=== PATIENT | female | born 1975 | race Caucasian/White ===

== ENCOUNTER 2016-11-02 13:49 | Emergency (ER) | payer OTHER ==
[~2016-11-02] VITALS: Ht 157.5 cm; Wt 108.6 kg
[2016-11-02 14:04] VITALS: BP 151/113; PULSE 107; RESP 16; TEMP 98.8; O2SAT 96
[2016-11-02 14:29] VITALS: BP 164/102; PULSE 98; RESP 18; O2SAT 97
[2016-11-02] MEDS ORDERED: BUPR150XL PO (14:29)
[2016-11-02] MEDS ORDERED: GARC500T PO (14:29)
[2016-11-02] MEDS ORDERED: PAXI20TA PO (14:29)
[2016-11-02] MEDS ORDERED: OMEP40CA2 PO (14:29)
--- NOTE | 2016-11-02 14:44 | PD ---
HPI Chief Complaint: Dizziness Time Seen by Provider: 14:31 Travel History International Travel<30 days: No Contact w/Intl Traveler<30days: No Traveled to known affect area: No History of Present Illness HPI 41yo F with PMH of HTN but off medication presents to the ED with c/o room spinning for the last 4-5 days. States it usually happens when she turns her head but improved on its own. However, today it did not improve so she came here. +Nausea. Denies any fever, headache, visual changes, tinnitus, vomiting , chest pain, sob, abdominal pain, focal weakness or numbness. PFSH Past Medical History Anxiety: Yes GERD: Yes Influenza Vaccination: No ?: Not LMP: 3 weeks ago Past Surgical History Surgical History: No Previous Surgery Social History Alcohol Use: No Tobacco Use: Yes Substance Use: No Allergies-Medications (Allergen,Severity, Reaction): Coded Allergies: No Known Allergies (Unverified , 11/02/16) Reported Meds & Prescriptions Reported Meds & Active Scripts Active Meclizine (Meclizine HCl) 25 Mg Tab 25 Mg PO DIRECTED PRN Reported Garcinia Cambogia 500-200 mg-Mcg (Garcinia Cambogia-Chromium) 1 Tab Tab 1 Tab PO DAILY Omeprazole 40 Mg Cap 40 Mg PO DAILY Wellbutrin Xl 24 HR (Bupropion HCl) 150 Mg Tab 150 Mg PO DAILY Paxil (Paroxetine HCl) 20 Mg Tab 20 Mg PO DAILY Review of Systems Except as stated in HPI: all other systems reviewed are Neg Physical Exam Narrative GENERAL: 41yo F not in distress. SKIN: Warm and dry. HEAD: Atraumatic. Normocephalic. EYES: Pupils equal and round. EOMI. +Right horizontal nystagmus. No scleral icterus. No injection or drainage. ENT: No nasal bleeding or discharge. Mucous membranes pink and moist. NECK: Trachea midline. No JVD. CARDIOVASCULAR: Regular rate and rhythm. No murmur appreciated. RESPIRATORY: No accessory muscle use. Clear to auscultation. Breath sounds equal bilaterally. GASTROINTESTINAL: Abdomen soft, non-tender, nondistended. No rebound tenderness or guarding. MUSCULOSKELETAL: No obvious deformities. No clubbing. No cyanosis. No edema. NEUROLOGICAL: Awake and alert. No obvious cranial nerve deficits. Motor grossly within normal limits. Normal speech. PSYCHIATRIC: Appropriate mood and affect; insight and judgment normal. Data Data Last Documented VS Vital Signs Date Time Temp Pulse Resp B/P Pulse Ox O2 Delivery O2 Flow Rate FiO2 11/02/16 15:57 78 18 156/81 100 Room Air 11/02/16 14:04 98.8 Orders Meclizine (Antivert) (11/02/16 14:45) Ondansetron Inj (Zofran Inj) (11/02/16 14:45) Complete Blood Count With Diff (11/02/16 14:40) Basic Metabolic Panel (Bmp) (11/02/16 14:40) Electrocardiogram (11/02/16 ) Labs Laboratory Tests Test 11/02/16 14:50 White Blood Count 7.4 TH/MM3 Red Blood Count 4.78 MIL/MM3 Hemoglobin 14.7 GM/DL Hematocrit 43.6 % Mean Corpuscular Volume 91.3 FL Mean Corpuscular Hemoglobin 30.7 PG Mean Corpuscular Hemoglobin 33.6 % Concent Red Cell Distribution Width 12.6 % Platelet Count 292 TH/MM3 Mean Platelet Volume 8.0 FL Neutrophils (%) (Auto) 62.6 % Lymphocytes (%) (Auto) 25.7 % Monocytes (%) (Auto) 7.1 % Eosinophils (%) (Auto) 4.0 % Basophils (%) (Auto) 0.6 % Neutrophils # (Auto) 4.7 TH/MM3 Lymphocytes # (Auto) 1.9 TH/MM3 Monocytes # (Auto) 0.5 TH/MM3 Eosinophils # (Auto) 0.3 TH/MM3 Basophils # (Auto) 0.0 TH/MM3 CBC Comment DIFF FINAL Differential Comment Sodium Level 139 MEQ/L Potassium Level 4.1 MEQ/L Chloride Level 105 MEQ/L Carbon Dioxide Level 25.9 MEQ/L Anion Gap 8 MEQ/L Blood Urea Nitrogen 10 MG/DL Creatinine 0.74 MG/DL Estimat Glomerular Filtration 87 ML/MIN Rate Random Glucose 89 MG/DL Calcium Level 8.4 MG/DL [facility] Medical Decision Making Medical Screen Exam Complete: Yes Emergency Medical Condition: Yes Interpretation(s) EKG: NSR 99bpm. LAD. Q wave V1, V2, V3, III. Differential Diagnosis Vertigo vs. arrhythmia vs. dehydration vs. electrolyte abnormality Narrative Course 41yo F with PMH of HTN off med here with symptoms consistent with peripheral vertigo. Pt feels spinning and triggered by head movement. +Right horizontal nystagmus. Will give meclizine and reevaluate. Labs reviewed, no leukocytosis. BMP unremarkable. Repeat VS wnl. Pt given zofran and meclizine and dizziness and nausea has resolved. Strict return precautions given. Diagnosis Primary Impression: Vertigo Patient Instructions: General Instructions Departure Forms: Tests/Procedures Additional Instructions: Please follow up with your PMD in 3-7 days. Please return to the ED if your symptoms worsen. Med/Other Pt SpecificInfo: Prescription(s) given Scripts Meclizine 25 Mg Tab25 Mg PO DIRECTED PRN (VERTIGO) #10 TAB Ref 0 Prov:Teresita Ware DO 11/02/16 Disposition: 01 DISCHARGE HOME Condition: Stable Teresita Ware DO Nov 02, 2016 14:44
[2016-11-02] MEDS ORDERED: MECLIZINE HCL 25 MG TAB PO ONE (14:45)
[2016-11-02] MEDS ORDERED: ONDANSETRON HCL 4 MG/2 ML VIAL IV PUSH ONE (14:45)
[2016-11-02 15:02] LABS: AUTOMATED NEUTROPHIL # 4.7 TH/MM3 (1.8-7.7); BASOPHIL % 0.6 % (0.0-2.0); EOSINOPHIL # 0.3 TH/MM3 (0-0.4); HEMATOCRIT 43.6 % (35.0-46.0); HEMO FLAGS DIFF FINAL; LYMPH % 25.7 % (9.0-44.0); LYMPHOCYTE # 1.9 TH/MM3 (1.0-4.8); MEAN CELL VOLUME 91.3 FL (80.0-100.0); MEAN CORPUSCULAR HEMOGLOBIN 30.7 PG (27.0-34.0); MEAN CORPUSCULAR HGB CONC 33.6 % (32.0-36.0); MONO % 7.1 % (0.0-8.0); NEUT % 62.6 % (16.0-70.0); PLATELET COUNT 292 TH/MM3 (150-450); RED BLOOD COUNT 4.78 MIL/MM3 (4.00-5.30); RED CELL DISTRIBUTION WIDTH 12.6 % (11.6-17.2); WHITE BLOOD COUNT 7.4 TH/MM3 (4.0-11.0)
[2016-11-02 15:11] LABS: POTASSIUM 4.1 MEQ/L (3.5-5.1)
[2016-11-02 15:14] LABS: BICARBONATE 25.9 MEQ/L (21.0-32.0)
[2016-11-02 15:57] VITALS: BP 156/81; PULSE 78; RESP 18; O2SAT 100
[2016-11-02] MEDS ORDERED: MECL-62 PO (16:07)
--- NOTE | 2016-11-03 23:59 | EKG ---
Date Performed: 11/02/2016 Time Performed: 14:53:22 PTAGE: 41 years EKG: Sinus rhythm QRS changes in V2 may be due to LVH but cannot rule out septal infarct Low QRS voltages in precordia l leads Abnormal ECG NO PREVIOUS TRACING DOCTOR: Srinivasa Lawler Interpretating Date/Time 11/03/2016 23:59:00
== END 2016-11-02 16:57 | disposition home or self-care (01) ==
LOC: PHED 13:49
DX: R42 Dizziness and giddiness (principal); R11.0 Nausea; H55.09 Other forms of nystagmus; R94.31 Abnormal electrocardiogram [ECG] [EKG]; I10 Essential (primary) hypertension; Z72.0 Tobacco use; Z87.19 Personal history of other diseases of the digestive system; Z86.59 Personal history of other mental and behavioral disorders
CPT/HCPCS: 80048; 85025; 93005; 96374; 99284; J2405

== ENCOUNTER 2017-04-28 18:39 | Emergency (ER) | payer OTHER ==
[~2017-04-28] VITALS: Ht 157.5 cm; Wt 109.6 kg
[~2017-04-28 18:39] MED LIST: BUPR150XL PO; NICO2GUM35 CHEW; OMEP40CA2 PO; PAXI20TA PO
[2017-04-28 18:47] VITALS: BP 158/92; PULSE 105; RESP 16; TEMP 98.6; O2SAT 96
[2017-04-28 19:10] VITALS: BP_SYST 158; BP_SYST 201; BP_DIAS 92; BP_DIAS 93; PULSE 103; PULSE 90; RESP 20; TEMP 97.3; TEMP 98.6; O2SAT 98
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
== END 2017-04-28 20:58 | disposition home or self-care (01) ==
LOC: PHEFT 18:39
DX: S60.221A Contusion of right hand, initial encounter (principal); W20.8XXA Other cause of strike by thrown, projected or falling object, initial encounter; K21.9 Gastro-esophageal reflux disease without esophagitis; I10 Essential (primary) hypertension; F17.210 Nicotine dependence, cigarettes, uncomplicated
CPT/HCPCS: 73130; 99283

== ENCOUNTER 2018-07-28 04:13 | Observation (INO) ==
[2018-07-28] MEDS ORDERED: Aspirin 325 MG Tablet PO ONE (04:33)
--- NOTE | 2018-07-28 04:33 | ED ---
HPI General Chief complaint: Chest Pain Stated complaint: Chest pain Time Seen by Provider: 07/28/18 04:19 Source: patient Mode of arrival: ambulatory Limitations: no limitations History of Present Illness HPI narrative: 42yo F who denies any PMH here with c/o chest pain that started 20 minutes ago. Said it feels like someone is pressing on her chest. Pain is midsternal. +Diaphoresis. any fever, sob, n/v, abdominal pain, history of PE , DVT, focal weakness or numbness. Related Data Home Medications Medication Instructions Recorded Confirmed bupropion HCl [Wellbutrin XL] 150 mg PO QAM 07/28/18 07/28/18 paroxetine HCl [Paxil] 10 mg PO DAILY 07/28/18 07/28/18 Allergies Allergy/AdvReac Type Severity Reaction Status Date / Time No Known Allergies Allergy Verified 07/28/18 04:26 Review of Systems ROS: all other systems reviewed are negative [facility] Medical History Medical History Depression (Acute) Surgical History Surgical History H/O removal of cyst (Acute) H/O tubal ligation (Acute) Previous section (Acute) Social History Social History Substance History: No History of Abuse Smoking Status: Former smoker How Often Do You Have a Drink Containing Alcohol: Never Exam Narrative Exam Narrative: GENERAL: 42yo F in mild distress. SKIN: Focused skin assessment warm/dry. HEAD: Atraumatic. Normocephalic. EYES: Pupils equal and round. No scleral icterus. No injection or drainage. ENT: No nasal bleeding or discharge. Mucous membranes pink and moist. NECK: Trachea midline. No JVD. CARDIOVASCULAR: Regular rate and rhythm. No murmur appreciated. RESPIRATORY: No accessory muscle use. Clear to auscultation. Breath sounds equal bilaterally. GASTROINTESTINAL: Abdomen soft, non-tender, nondistended. MUSCULOSKELETAL: No obvious deformities. No clubbing. No cyanosis. No edema. NEUROLOGICAL: Awake and alert. No obvious cranial nerve deficits. Motor grossly within normal limits. Normal speech. PSYCHIATRIC: Appropriate mood and affect; insight and judgment normal. Course Initial Documented Vital Signs Temperature 97.7 F 07/28/18 04:27 Pulse Rate 115 H 07/28/18 04:27 Respiratory Rate 20 07/28/18 04:27 Blood Pressure 121/74 07/28/18 04:27 Pulse Oximetry 98 07/28/18 04:27 Last Documented Vital Signs Temperature 97.2 F L 07/28/18 06:15 Pulse Rate 98 H 07/28/18 06:15 Respiratory Rate 18 07/28/18 06:15 Blood Pressure 132/85 07/28/18 06:15 Pulse Oximetry 95 07/28/18 06:15 Medical Decision Making MDM Narrative Medical decision making narrative: 42yo F here with c/o midsternal chest pain that started 20 minutes prior to arrival. Said she has never had this chest pain before and never had a stress test. Pt does appear anxious so given 1mg of ativan. Also given aspirin and sublingual nitro. Chest pain has improved. Labs reviewed, no leukocytosis. H/H normal. Troponin negative. Pt was tachycardic so I did obtain D-dimer which was negative. CXR negative. Discussed with Dr. Ospina and accepted to her service for chest pain center. Medical Screen Exam Complete: Yes Emergency Medical Condition: Yes Differential Diagnosis Differential Diagnosis: ACS vs. anxiety vs. musculoskeletal pain vs. GERD Lab Data Result diagrams: 07/28/18 04:25 07/28/18 04:25 Lab Results 07/28/18 07/28/18 07/28/18 Range/Units 04:25 04:25 04:35 CBC w Diff Auto diff final WBC 10.0 (4.0-11.0) th/mm3 RBC 4.74 (4.00-5.30) mil/mm3 Hgb 14.6 (11.6-15.3) gm/dL Hct 42.8 (35.0-46.0) % MCV 90.3 (80.0-100.0) fL MCH 30.8 (27.0-34.0) pg MCHC 34.1 (32.0-36.0) % RDW 12.4 (11.6-17.2) % Plt Count 286 (150-450) th/mm3 MPV 8.0 (7.0-11.0) fL Neut % (Auto) 56.0 (16.0-70.0) % Lymph % (Auto) 32.4 (9.0-44.0) % [place] % (Auto) 7.7 (0.0-8.0) % Eos % (Auto) 3.5 (0.0-4.0) % Baso % (Auto) 0.4 (0.0-2.0) % Neut # (Auto) 5.5 (1.8-7.7) th/mm3 Lymph # (Auto) 3.3 (1.0-4.8) th/mm3 [place] # (Auto) 0.8 (0.0-0.9) th/mm3 Eos # (Auto) 0.4 (0.0-0.4) th/mm3 Baso # (Auto) 0.0 (0.0-0.2) th/mm3 WBC Differential . Differential Comment . D-Dimer Quant (PE/DVT) 0.19 (0.00-0.50) mg/L FEU Sodium 140 (136-145) meq/L Potassium 3.4 L (3.5-5.1) meq/L Chloride 109 H (98-107) meq/L Carbon Dioxide 22.0 (21.0-32.0) meq/L Anion Gap 9 (5-15) meq/L BUN 11 (7-18) mg/dL Creatinine 0.78 (0.50-1.00) mg/dL Estimated GFR 82 L (>89) mL/min Random Glucose 113 H (74-106) mg/dL Calcium 8.4 L (8.5-10.1) mg/dL Total Bilirubin 0.3 (0.2-1.0) mg/dL AST 15 (15-37) U/L ALT 35 (10-53) U/L Alkaline Phosphatase 105 (45-117) U/L Troponin I Less than 0.02 L (0.02-0.05) ng/mL Total Protein 7.3 (6.4-8.2) g/dL Albumin 3.6 (3.4-5.0) g/dL Imaging Data Radiologist's impression: Chest X-Ray 07/28/18 04:15 CONCLUSION: No active disease. ECG Data EKG Prior to Arrival: No Attestation: I personally reviewed and interpreted this ECG as follows: Interpretation: Sinus tachycardia at 100bpm. LAD. GA interval 169ms. No significant ST elevation or depression. Q wave V2. Discharge Plan Discharge Disposition Patient Disposition: 30 Still Patient Discharge Details Diagnosis: Chest pain Physicians Team ED Provider: Teresita Ware Primary Care Provider: [facility],Physician Family Attending Provider: Von Virk Status ED Status: Left Department Discharge Information Discharge Date/Time: 07/28/18 06:24
[2018-07-28 04:42] LABS: Baso % (Auto) 0.4 % (0.0-2.0); Eos # (Auto) 0.4 th/mm3 (0.0-0.4); Eos % (Auto) 3.5 % (0.0-4.0); Hematocrit 42.8 % (35.0-46.0); Hemoglobin 14.6 gm/dL (11.6-15.3); Lymph # (Auto) 3.3 th/mm3 (1.0-4.8); Lymph % (Auto) 32.4 % (9.0-44.0); Mean Corpuscular HGB Conc 34.1 % (32.0-36.0); Mean Corpuscular Hemoglobin 30.8 pg (27.0-34.0); Mean Corpuscular Volume 90.3 fL (80.0-100.0); Mono # (Auto) 0.8 th/mm3 (0.0-0.9); Mono % (Auto) 7.7 % (0.0-8.0); Neut # (Auto) 5.5 th/mm3 (1.8-7.7); Platelet Count 286 th/mm3 (150-450); Red Blood Count 4.74 mil/mm3 (4.00-5.30); Red Cell Distribution Width 12.4 % (11.6-17.2)
[2018-07-28] MEDS ORDERED: Sod Chloride 0.9% Inj 1,000 ML IV.SIG SCH (04:45)
[2018-07-28 04:49] LABS: Chloride 109 meq/L (98-107); Potassium 3.4 meq/L (3.5-5.1); Sodium 140 meq/L (136-145)
[2018-07-28 04:52] LABS: Calcium 8.4 mg/dL (8.5-10.1)
[2018-07-28 04:53] LABS: Albumin 3.6 g/dL (3.4-5.0); Anion Gap 9 meq/L (5-15); Blood Urea Nitrogen 11 mg/dL (7-18); Glucose,Random 113 mg/dL (74-106)
[2018-07-28 04:56] LABS: Alanine Aminotransferase 35 U/L (10-53); Aspartate Aminotransferase 15 U/L (15-37); Glomerular Filtration Rate 82 mL/min (>89)
[2018-07-28 04:58] LABS: Total Protein 7.3 g/dL (6.4-8.2)
[2018-07-28 04:59] LABS: Alkaline Phosphatase 105 U/L (45-117)
--- NOTE | 2018-07-28 05:01 | XR ---
EXAM DATE: 07/28/2018 4:41 AM EST AGE/SEX: 42 years / Female INDICATIONS: Anterior chest wall pain. CLINICAL DATA: This is the patient's initial encounter. Patient reports that signs and symptoms have been present for 1 day and indicates a pain score of 10/10. MEDICAL/SURGICAL HISTORY: Non-responsive. Non-responsive. COMPARISON: No prior exams available for comparison. FINDINGS: A single AP view of the chest demonstrates the lungs to be symmetrically aerated without evidence of mass, infiltrate or effusion. The cardiomediastinal contours are unremarkable. Osseous structures a re intact. CONCLUSION: No active disease. Electronically signed by: Dread Childers MD 07/28/2018 4:59 AM EST
[2018-07-28] MEDS ORDERED: Acetaminophen 500 MG Tablet PO PRN (05:35)
[2018-07-28] MEDS ORDERED: Morphine Inj 4 MG/ML Vial IV.PUSH PRN (05:35)
[2018-07-28] MEDS ORDERED: Sod Chloride 0.9% Inj 1,000 ML IV.CONT SCH (05:45)
[2018-07-28] MEDS ORDERED: Heparin - SQ 10,000 UNITS/ML Vial SQ SCH (06:00)
--- NOTE | 2018-07-28 08:01 | P.HP ---
History of Present Illness Primary Care Physician: Physician [facility] Chief Complaint: Chest pain History of Present Illness: 42-year-old female with known history of depression who presented to the hospital because acute onset of chest pain. Patient states that she was in normal state of health and went to bed last night at approximately 3:50 AM this morning she woke up suddenly with a sharp pain in her back radiating down to her chest with associated jaw pain, nausea, shortness of breath, diaphoresis. She states that it was 8/10 on a pain scale. She described it as like a knife stabbing from her back into her chest and remained persistent with a change of pain which she described as it felt as if someone was reaching in her chest grabbing her spine. Patient got out of bed and tried stretching and lying on the floor but it did not help so she came to emergency department for evaluation. Patient was given aspirin, nitroglycerin in the emergency department. Patient states that after the second nitroglycerin the pain resolved. Currently the patient is asymptomatic. Patient had workup done and was unremarkable for any acute event. It is recommend that the patient be observed in the chest pain center for further evaluation and management. Patient denies any previous cardiac issues, cardiac workup. Patient denies any lightheadedness, dizziness, abdominal pain, diarrhea, constipation, melena, hematochezia, heartburn, gastroesophageal reflux. - Diagnosis (1) Chest pain Review of Systems All other systems reviewed negative except as stated in HPI Cardiovascular: Reports chest pain, Reports radiating jaw, neck or arm pain, Reports shortness of breath Gastrointestinal: Reports nausea PMFSH - History History Provided By: Patient - Medical History Medical History: Medical History (Last Reviewed 07/28/18 @ 08:00 by FELICE Huynh) Depression - Surgical History Surgical History: Surgical History (Last Reviewed 07/28/18 @ 08:00 by FELICE Huynh) History of cholecystectomy H/O removal of cyst H/O tubal ligation Previous section - Family History Family History: Family History (Last Reviewed 07/28/18 @ 08:00 by FELICE Huynh) Father Family history of hypertension Other Family history of breast cancer Family history of diabetes mellitus Family history of lung cancer - Tobacco History Second Hand Smoke Exposure: No Tobacco Use In Past 30 Days: No Smoking Status: Former smoker Tobacco Type: Cigarettes Number of Pack Years (if former smoker): 10 (Quit smoking 6 months ago) - Alcohol History How Often Do You Have a Drink Containing Alcohol: Never - Substance Use History Substance History: No History of Abuse - Travel History Recent Travel in the [place] Within the Last 8 Weeks: No Recent Travel Out of the Country Within the Last 8 Weeks: No - Immunization History Tetanus Immunization: <5 Years Medications and Allergies Active Medications: Active Medications Acetaminophen (Tylenol) 500 mg PO Q4H PRN PRN Reason: HEADACHE Heparin Sodium (Porcine) (Heparin Inj) 5,000 units SQ Q12H [facility] Last Admin: 07/28/18 06:37 Dose: 5,000 units Sodium Chloride (Ns Inj) 1,000 mls @ 100 mls/hr IV.CONT .Q10H [facility] Last Admin: 07/28/18 05:47 Dose: 100 mls/hr Morphine Sulfate (Morphine Inj) 2 mg IV.PUSH Q4H PRN PRN Reason: PAIN SCALE 8 TO 10 Last Admin: 07/28/18 05:56 Dose: 2 mg Sodium Chloride (Ns Flush) 2 ml IV.FLUSH BID BENJA Sodium Chloride (Ns Flush) 2 ml IV.FLUSH PRN PRN PRN Reason: FLUSH AFTER USING IV ACCESS Allergies Allergy/AdvReac Type Severity Reaction Status Date / Time No Known Allergies Allergy Verified 07/28/18 04:26 Home Medications Medication Instructions Recorded Confirmed Type bupropion HCl [Wellbutrin XL] 150 mg PO QAM 07/28/18 07/28/18 History paroxetine HCl [Paxil] 10 mg PO DAILY 07/28/18 07/28/18 History Exam Vital signs: Vital Signs 07/28/18 04:27 07/28/18 04:33 07/28/18 04:34 Temperature 97.7 F Pulse Rate 115 H 115 H Respiratory Rate 20 Blood Pressure 121/74 Pulse Oximetry 98 98 98 07/28/18 04:44 07/28/18 04:49 07/28/18 04:56 Temperature Pulse Rate 118 H 117 H 108 H Respiratory Rate Blood Pressure 138/87 113/82 140/83 Pulse Oximetry 07/28/18 05:59 07/28/18 06:15 07/28/18 06:37 Temperature 97.2 F L Pulse Rate 96 H 98 H Respiratory Rate 18 Blood Pressure 111/75 132/85 Pulse Oximetry 95 95 Intake & Output 11/23/18 11/24/18 11/24/18 18:59 06:59 18:59 Intake Total 1000 / 1000 Balance 1000 / 1000 Weight 110.5 kg Intake: IV 1000 / 1000 NS Inj 1,000 ML @ 1000 mls/hr 1000 / 1000 IV.SIG BOLUS BENJA Rx#:[id number] Other: Weight On Admission 109.005 kg Narrative: GENERAL: Well-developed, mildly obese with BMI 43.8, in no acute distress. alert and orientated HEENT: Head is normocephalic without any lesions or masses noted. Facial features are symmetric. Eyes: Pupils equal round reactive to light. Extraocular muscles are intact. Conjunctivae were clear. Oropharyngeal: Pharynx without any erythema edema. Tongue is midline without deviation. Buccal mucosa is moist without any masses or lesions NECK: Supple without any masses. Trachea midline no deviation. No JVD, no bruits are appreciated CARDIAC: Regular rhythm, regular rate. S1/S2 are heard. No murmurs gallops or rubs. LUNGS: Clear to auscultation bilaterally. No wheeze, rhonchi or rales. No use of accessory muscles on inspiration or expiration. ABDOMEN: Soft, nontender. Nondistended. Bowel sounds heard in all 4 quadrants. No organomegaly or masses. Negative rebound, negative guarding EXTREMITIES: No edema, pulses are equal bilaterally. No cyanosis or clubbing NEUROLOGY: Mood and affect appear appropriate. Cranial nerves II through XII grossly intact. Muscle strength 5/5 in upper and lower extremities bilaterally. Deep tendon reflexes are 2+ in upper and lower extremities bilaterally. Results - Labs CBC & Chem 7: 07/28/18 04:25 07/28/18 04:25 Labs: Laboratory Results - last 24 hr 07/28/18 07/28/18 07/28/18 04:25 04:25 04:35 CBC w Diff Auto diff final WBC 10.0 RBC 4.74 Hgb 14.6 Hct 42.8 MCV 90.3 MCH 30.8 MCHC 34.1 RDW 12.4 Plt Count 286 MPV 8.0 Neut % (Auto) 56.0 Lymph % (Auto) 32.4 [place] % (Auto) 7.7 Eos % (Auto) 3.5 Baso % (Auto) 0.4 Neut # (Auto) 5.5 Lymph # (Auto) 3.3 [place] # (Auto) 0.8 Eos # (Auto) 0.4 Baso # (Auto) 0.0 WBC Differential . Differential Comment . D-Dimer Quant (PE/DVT) 0.19 Sodium 140 Potassium 3.4 L Chloride 109 H Carbon Dioxide 22.0 Anion Gap 9 BUN 11 Creatinine 0.78 Estimated GFR 82 L Random Glucose 113 H Calcium 8.4 L Total Bilirubin 0.3 AST 15 ALT 35 Alkaline Phosphatase 105 Troponin I Less than 0.02 L Total Protein 7.3 Albumin 3.6 - Imaging Impressions Chest X-Ray 07/28/18 04:15 CONCLUSION: No active disease. Caprini VTE Risk Assessment Caprini VTE Risk Assessment: No/Low Risk (score <= 1) Caprini Risk Assessment Model: Point Value = 1 Point Value = 2 Point Value = 3 Point Value = 5 Age 41-60 Minor surgery BMI > 25 kg/m2 Swollen legs Varicose veins or History of unexplained or recurrent spontaneous Oral contraceptives or hormone replacement Sepsis (< 1 month) Serious lung disease, including pneumonia (< 1 month) Abnormal pulmonary function Acute myocardial infarction Congestive heart failure (< 1 month) History of inflammatory bowel disease Medical patient at bed rest Age 61-74 Arthroscopic surgery Major open surgery (> 45 min) Laparoscopic surgery (> 45 min) Malignancy Confined to bed (> 72 hours) Immobilizing plaster cast Central venous access Age >= 75 History of VTE Family history of VTE Factor V Leiden Prothrombin [id number] Lupus anticoagulant Anticardiolipin antibodies Elevated serum homocysteine Heparin-induced thrombocytopenia Other congenital or acquired thrombophilia Stroke (< 1 month) Elective arthroplasty Hip, pelvis, or leg fracture Acute spinal cord injury (< 1 month) Prophylaxis Regimen: Total Risk Factor Score Risk Level Prophylaxis Regimen 0-1 Low Early ambulation 2 Moderate Order ONE of the following: *Sequential Compression Device (SCD) *Heparin 5000 units SQ BID 3-4 Higher Order ONE of the following medications: *Heparin 5000 units SQ TID *Enoxaparin/Lovenox 40 mg SQ daily (WT < 150 kg, CrCl > 30 mL/min) *Enoxaparin/Lovenox 30 mg SQ daily (WT < 150 kg, CrCl > 10-29 mL/min) *Enoxaparin/Lovenox 30 mg SQ BID (WT < 150 kg, CrCl > 30 mL/min) AND/OR *Sequential Compression Device (SCD) 5 or more Highest Order ONE of the following medications: *Heparin 5000 units SQ TID (Preferred with Epidurals) *Enoxaparin/Lovenox 40 mg SQ daily (WT < 150 kg, CrCl > 30 mL/min) *Enoxaparin/Lovenox 30 mg SQ daily (WT < 150 kg, CrCl > 10-29 mL/min) *Enoxaparin/Lovenox 30 mg SQ BID (WT < 150 kg, CrCl > 30 mL/min) AND *Sequential Compression Device (SCD) Assessment and Plan - Assessment (1) Chest pain Code(s): R07.9 - Chest pain, unspecified Status: Acute - Plan Chest pain, atypical -Patient with minimal risk factor to include tobacco use, family history of hypertension -Patient has been ruled out for acute coronary event with serial cardiac enzymes remain negative -Serial EKGs were performed and reviewed by myself and indicated sinus rhythm without any acute changes -Exercise stress test was performed and indicated no signs of ischemia, normal exam -Continue aspirin, nitroglycerin, morphine for pain control -Continue monitor telemetry Depression -Continue home medications DVT prevention -Subcutaneous heparin Discharge Planning: Discharge home in stable condition Activity: Ad [place]. Diet: Regular diet Medication per medication reconciliation Follow-up with primary medical doctor in 1 week
[2018-07-28 10:27] LABS: Creatine Kinase 41 U/L (26-192)
[2018-07-28 10:48] LABS: Creatine Kinase 42 U/L (26-192)
--- NOTE | 2018-07-29 08:58 | ECG ---
Date Performed: 07/28/2018 Time Performed: 10:10:06 PTAGE: 42 years EKG: Sinus rhythm LOW QRS VOLTAGE IN PRECORDIAL LEADS POSSIBLE ANTERIOR MYOCARDIAL INFARCTION BORDERLINE ECG No signif icant change PREVIOUS TRACING : 07/28/2018 08.26 DOCTOR: Jasvir Tapia Interpretating Date/Time 07/29/2018 08:57:03
--- NOTE | 2018-07-29 08:58 | ECG ---
Date Performed: 07/28/2018 Time Performed: 08:26:44 PTAGE: 42 years EKG: Sinus rhythm WITH SINUS ARRHYTHMIA LOW QRS VOLTAGE IN PRECORDIAL LEADS POSSIBLE ANTERIOR MYOCARDIAL INFARCTION GEORGE RDERLINE ECG INTERPRETATION BASED ON A DEFAULT AGE OF 42 YEARS No significant change PREVIOUS TRACING : 07/28/2018 04.20 DOCTOR: Jasvir Tapia Interpretating Date/Time 07/29/2018 08:57:20
--- NOTE | 2018-07-29 08:59 | ECG ---
Date Performed: 07/28/2018 Time Performed: 04:20:46 PTAGE: 42 years EKG: SINUS TACHYCARDIA MARKED LEFT AXIS DEVIATION LOW QRS VOLTAGE IN PRECORDIAL LEADS ANTEROSEPT AL MYOCARDIAL INFARCTION ABNORMAL ECG INTERPRETATION BASED ON A DEFAULT AGE OF 42 YEARS No significan t change PREVIOUS TRACING : 11/02/2016 14.53 DOCTOR: Jasvir Tapia Interpretating Date/Time 07/29/2018 08:57:50
--- NOTE | 2018-07-29 09:00 | TR ---
Date Performed: 07/28/2018 Time Performed: 12:44:49 DOCTOR: Jasvir Tapia DRUG LIST: CLINICAL HISTORY: CHEST PAIN REASON FOR TEST: REASON FOR ENDING: Completed Protocol OBSERVATION: Arrhythmia: None Chest Pain: None CONCLUSION: Patient tolerated MARC protocol with Total Exercise Time=6:05 Maximum JB=833 % Max HR Achieved=88.0% Maximum WD=969/88, Testing stopped secondary to goals acheived. Patient was asympto matic during testing. during peak exercise, patient had upsloping ST segments. HR and BP appropriate response to exercsie, Recovery period, HR and BP returned to baseline COMMENTS:
== END 2018-07-28 15:05 | disposition home or self-care (01) ==
LOC: PHED 04:13 → PHEDA 04:13 → PH3 06:19
PROVIDERS: ADMIT Hospitalist; ATTEND Hospitalist